=== PATIENT | female | born 1965 | race Caucasian/White ===

== ENCOUNTER 2019-09-16 06:58 | Day surgery (SDC) | payer OTHER ==
[2019-09-09 10:30] LABS: HEMATOCRIT 41.8 % (36.0-47.0); HEMOGLOBIN 14.7 g/dL (12.0-15.5); MEAN CORPUSCULAR HEMOGLOBIN 38.1 pg (27.0-33.4); MEAN CORPUSCULAR HGB CONC 35.1 g/dL (32.0-36.0); MEAN CORPUSCULAR VOLUME 109 fl (80-97); RED BLOOD COUNT 3.85 10^6/uL (3.72-5.28); RED CELL DISTRIBUTION WIDTH 15.7 % (11.5-14.0); WHITE BLOOD COUNT 2.7 10^3/uL (4.0-10.5)
[2019-09-09 10:56] LABS: PLATELET COUNT 80 10^3/uL (150-450)
[~2019-09-16 06:58] MED LIST: ACETAMINOPHEN 325 MG TABLET PO PRN; CEFAZOLIN 1 GM/D5W RTU 1 GM/50 ML RTUPB IV PRN; LIDOCAINE 1%/EPINEPHRINE INJ 20 ML VIAL ONE; RINGERS SOLUTION,LACTATED 1,000 ML IV PRN
[2019-09-16] MEDS ORDERED: CEFAZOLIN 1 GM/D5W RTU 1 GM/50 ML RTUPB IV ONE (07:54)
[2019-09-16] MEDS ORDERED: MEPERIDINE HCL/PF INJ 25 MG/1 ML DISP.SYRIN IV PRN (07:59)
[2019-09-16] MEDS ORDERED: FENTANYL CITRATE INJ/PF 100 MCG/2 ML AMPUL IV PRN ×3 (07:59)
[2019-09-16] MEDS ORDERED: PROMETHAZINE HCL INJ 25 MG/1 ML VIAL IV PRN ×2 (07:59)
[2019-09-16] MEDS ORDERED: DIPHENHYDRAMINE HCL 50 MG/ML VIAL IV PRN (07:59)
[2019-09-16] MEDS ORDERED: OXYCODONE-ACETAMINOPHEN 5-325 MG TABLET PO PRN ×3 (07:59→09:36)
[2019-09-16] MEDS ORDERED: PROPOFOL INJ 200 MG/20 ML VIAL IV ONE (08:28)
[2019-09-16] MEDS ORDERED: MIDAZOLAM 2 MG/2 ML INJ ONE (08:28)
[2019-09-16] MEDS ORDERED: FENTANYL CITRATE INJ/PF 100 MCG/2 ML AMPUL ONE (08:28)
[2019-09-16] MEDS ORDERED: LIDOCAINE 1%/EPINEPHRINE INJ 20 ML VIAL ONE (08:29)
--- NOTE | 2019-09-16 09:36 | Discharge Summary ---
Discharge Summary (SDC) - Discharge Final Diagnosis: glioblastoma Date of Surgery: 09/16/19 Discharge Date: 09/16/19 Condition: Good Treatment or Instructions: WOUND CARE: - Do not shower for 48 hours. - After 48 hours, you may shower, wash area with warm water/soap, pat dry, and cover with gauze if needed. - Do not take a bath or go swimming for two weeks. PAIN MANAGEMENT: - You may take over the counter pain medication as needed for pain. FOLLOW UP: - You may follow up at [facility] in 7-10 days - Call clinic with any questions/concerns. Referrals: MI JOHNSON [Primary Care Provider] - Discharge Diet: As Tolerated Discharge Activity: Activity As Tolerated Report the Following to Your Physician Immediately: Shortness of Breath, Increase in Pain, Fever over 101 Degrees, Unusual Bleeding, Redness, Swelling, Warmth, Drainage-Foul Smelling
--- NOTE | 2019-09-16 09:40 | Operative Report ---
Operative Report DATE OF SURGERY: 09/16/19 PREOPERATIVE DIAGNOSIS: Glioblastoma multiform POSTOPERATIVE DIAGNOSIS: Same OPERATION: 1. Focus ultrasound of the right neck. 2. Ultrasound directed insertion of single chamber Wkyhmm-a-Arre catheter right internal jugular vein. 3. Interpretation of intraoperative fluoroscopy SURGEON: ELLA LOVETT ANESTHESIA: LMAC TISSUE REMOVED OR ALTERED: None COMPLICATIONS: None ESTIMATED BLOOD LOSS: Scant INTRAOPERATIVE FINDINGS: See below PROCEDURE: The patient was taken to the preop holding area to the main operating room LMAC anesthesia was induced. Arms were tucked neck exposed, the neck prepped and draped in sterile fashion Surgical plan surgical timeout were conducted. The right neck was scanned with a variable frequency linear transducer. The right internal jugular vein was felt to be suitable for cannulation. The skin was anesthetized 1% plain lidocaine. A micro needle and wire were threaded into the right internal jugular vein. A suitable site for placement of the port was chosen in the right subclavian position. The skin was anesthetized with 1% plain lidocaine. A 3 cm incision was made parallel to the clavicle. A subcutaneous port pocket was developed with electrocautery and blunt dissection. The catheter was then trimmed to the appropriate length, tunneled between the 2 incisions, attached to the port, with the plastic ring. The micro wire was switched to a 0.030 conventional guidewire, and a 9 Kosovan introducer and dilator were threaded over the guidewire. The dilator and wire removed, and free catheter fragment and was threaded into the strip away sheath. This sheath was removed, leaving the catheter in good position. There was no evidence of catheter kinkage. The tip of the catheter was in the inferior vena cava. There is no evidence of ectopy. Hemostasis was excellent. The sponge and needle counts are correct. Wounds were closed with 3-0 Vicryl benzoin and Steri-Strips. Patient tolerated the procedure well, taken to recovery in stable condition. Discharge instructions provided.
--- NOTE | 2019-09-16 11:35 | RADIOLOGY REPORT (SQ) ---
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 FLUOROSCOPY TIME: Less than 1 second Spot images saved to PACS. TECHNIQUE: Intra-operative images acquired during surgical procedure to evaluate progress. NUMBER OF IMAGES: 3 LIMITATIONS: None. FINDINGS: Fluoroscopy was provided for intraoperative procedure. Please refer to the operative repo rt for further discussion. IMPRESSION: IMAGE(S) OBTAINED DURING PROCEDURE. COMMENT: Quality ID [id number]: Final reports for procedures using fluoroscopy that document radiation exp osure indices, or exposure time and number of fluorographic images (if radiation exposure indices are not available) Please consult full operative report of the attending physician for description of the procedure. TECHNICAL DOCUMENTATION: JOB ID: [id number] 2010 [employer]- All Rights Reserved Reading location - IP/workstation name: [email or web address]
[2019-09-16 13:35] VITALS: BP 117/73
[2019-09-16] MEDS ORDERED: LIDOCAINE 2% INJ-PF (20 MG/ML) 2 ML AMPUL ONE (13:56)
== END 2019-09-16 11:38 | disposition home or self-care (01) ==
LOC: OROUT 06:58
PROVIDERS: ATTEND Surgery
DX: C71.9 Malignant neoplasm of brain, unspecified (principal); C71.2 Malignant neoplasm of temporal lobe; H54.61 Unqualified visual loss, right eye, normal vision left eye; R29.898 Other symptoms and signs involving the musculoskeletal system; M62.81 Muscle weakness (generalized); Z87.891 Personal history of nicotine dependence; Z79.899 Other long term (current) drug therapy; E78.00 Pure hypercholesterolemia, unspecified
CPT/HCPCS: 36561; 36415; 85027; 87635; 81025; 77001; J2250; J0690; J3010; J3490 ×2; J2704; J1642; 532; C1752; C1788